=== PATIENT | female | born 1955 | race Caucasian/White ===

== ENCOUNTER 2017-02-19 09:43 | Emergency (ER) | payer BC ==
[2017-02-19] MEDS ORDERED: RX INFO: IV CONTRAST WAS GIVEN 1 EACH MISC MISCELLANE PRN ×2 (10:12→10:15)
[2017-02-19] MEDS ORDERED: SODIUM CHLORIDE 0.9% 500 ML IV STA (10:12)
[2017-02-19] MEDS ORDERED: SODIUM CHLORIDE 0.9% 1,000 ML IV STA (10:12)
[2017-02-19] MEDS ORDERED: ONDANSETRON 4 MG/2 ML VIAL IVP STA (10:12)
[2017-02-19] MEDS ORDERED: HYDROmorphone 1 MG/ML 1 ML SYRINGE IVP STA ×2 (10:12→12:21)
--- NOTE | 2017-02-19 10:54 | ED ---
Abdominal Pain HPI - General Chief Complaint: Abdominal Pain Stated Complaint: Abd Pain, left side pain Time Seen by Provider: 02/19/17 10:05 Source: patient Mode of arrival: ambulatory Limitations: no limitations - History of Present Illness Initial Comments: 61 years old female woke up with excruciating pain on the left upper quadrant area of the abdomen left side of the chest and pain in the left shoulder she denies any fall, no trauma. She denies any heavy lifting pushing or pulling. She fell 2 weeks ago and she broke multiple ribs on the left lower side but that pain was getting better gradually this morning when she woke up she noticed a 6 excruciating pain it hurts to take a deep breaths though she has no trauma to the left shoulder she feels pain in the left shoulder area and also pain over the stomach and spleen are. Review of system is otherwise unremarkable - Related Data Home Medications Medication Instructions Recorded Confirmed Ibuprofen [Motrin] 800 mg PO Q6HR PRN 02/19/17 02/19/17 Allergies Allergy/AdvReac Type Severity Reaction Status Date / Time Penicillins Allergy Rash/Hives Verified 02/19/17 12:12 Review of Systems ROS Statement: Those systems with pertinent positive or pertinent negative responses have been documented in the HPI. ROS Other: All systems not noted in ROS Statement are negative. Past Medical History Additional Past Medical History / Comment(s): hx. colon polyps , lt rib fx from fall History of Any Multi-Drug Resistant Organisms: None Reported Additional Past Surgical History / Comment(s): colonoscopies Past Anesthesia/Blood Transfusion Reactions: No Reported Reaction Past Psychological History: No Psychological Hx Reported Smoking Status: Never smoker Past Alcohol Use History: None Reported Past Drug Use History: None Reported - Past Family History Mother Family Medical History: No Reported History General Exam - General Exam Comments Initial Comments: Severe distress General: The patient is awake and alert, in severe distress she is not even able to lay down for the care and treatment exam when she was sitting up Skin: Skin is warm and dry and no rashes or lesions are noted. Eye: Pupils are equal, round and reactive to light, extra-ocular movements are intact; there is normal conjunctiva bilaterally. Ears, nose, mouth and throat: There are moist mucous membranes and no oral lesions. Neck: The neck is supple, there is no tenderness or JVD. Cardiovascular: There is a regular rate and rhythm. No murmur, rub or gallop is appreciated. The tender over the left lateral chest Respiratory: To auscultation bilateral, no wheezing no rhonchi no distress respiratory miranda noticed Gastrointestinal: She is very tender over the left upper quadrant area Back: There is no tenderness to palpation in the midline. There is no obvious deformity. Musculoskeletal: Normal ROM, no tenderness, There is no pedal edema. There is no calf tenderness or swelling. No cords were appreciated. Neurological: CN II-XII intact, Cranial nerves III through XII are intact. There are no obvious motor or sensory deficits. Coordination appears grossly intact. Speech is normal. Psychiatric: Cooperative, appropriate mood & affect, normal judgment. Limitations: no limitations Course Vital Signs 02/19/17 02/19/17 02/19/17 10:01 12:21 12:47 Temperature 97.1 F L Pulse Rate 100 65 79 Respiratory 20 18 18 Rate Blood Pressure 224/98 119/62 131/76 O2 Sat by Pulse 99 95 95 Oximetry 02/19/17 02/19/17 02/19/17 13:02 13:30 14:13 Temperature Pulse Rate 70 64 69 Respiratory 18 18 18 Rate Blood Pressure 146/76 136/76 114/69 O2 Sat by Pulse 95 94 L 93 L Oximetry 02/19/17 14:31 Temperature 97.5 F L Pulse Rate 71 Respiratory 18 Rate Blood Pressure 127/72 O2 Sat by Pulse 96 Oximetry EKG is normal sinus rhythm ventricular rate 73 TX interval is 142 QRS duration is 80 QT/QTc is 396/[address] depression in aVL apart from that no ST elevation noticed no other major abnormalities noticed - Reevaluation(s) Reevaluation #1: 02/19/17 12:20 Current call from our radiologist about splenic fracture and active bleeding on the patient around 12:15, Dr. Rangel Quiñones was paged and spoke with her at 2020 for findings are discussed with the patient 02/19/17 14:36 Dr. Rangel Quiñones seen the patient several times and finally she made arrangements for transfer to [facility], family agreed with that and at that time we made arrangements she has been hemodynamically stable Medical Decision Making - Lab Data Result diagrams: 02/19/17 13:23 02/19/17 11:00 Lab Results 02/19/17 02/19/17 02/19/17 Range/Units 11:00 11:00 11:00 WBC (3.8-10.6) k/uL RBC (3.80-5.40) m/uL Hgb (11.4-16.0) gm/dL Hct (34.0-46.0) % MCV (80.0-100.0) fL MCH (25.0-35.0) pg MCHC (31.0-37.0) g/dL RDW (11.5-15.5) % Plt Count (150-450) k/uL Neutrophils % % Lymphocytes % % Monocytes % % Eosinophils % % Basophils % % Neutrophils # (1.3-7.7) k/uL Lymphocytes # (1.0-4.8) k/uL Monocytes # (0-1.0) k/uL Eosinophils # (0-0.7) k/uL Basophils # (0-0.2) k/uL Sodium 141 (137-145) mmol/L Potassium 4.2 (3.5-5.1) mmol/L Chloride 109 H (98-107) mmol/L Carbon Dioxide 22 (22-30) mmol/L Anion Gap 10 mmol/L BUN 16 (7-17) mg/dL Creatinine 0.67 (0.52-1.04) mg/dL Est GFR (MDRD) Af Amer >60 (>60 ml/min/1.73 sqM) Est GFR (MDRD) Non-Af >60 (>60 ml/min/1.73 sqM) Glucose 119 H (74-99) mg/dL Plasma Lactic Acid Franklyn 1.2 (0.7-2.0) mmol/L Calcium 9.3 (8.4-10.2) mg/dL Total Bilirubin 0.5 (0.2-1.3) mg/dL AST 16 (14-36) U/L ALT 37 (9-52) U/L Alkaline Phosphatase 93 (38-126) U/L Troponin I <0.012 (0.000-0.034) ng/mL Total Protein 6.6 (6.3-8.2) g/dL Albumin 4.3 (3.5-5.0) g/dL Amylase <30 L (30-110) U/L Lipase 55 (23-300) U/L Urine Color Urine Appearance (Clear) Urine pH (5.0-8.0) Ur Specific [place] (1.001-1.035) Urine Protein (Negative) Urine Glucose (UA) (Negative) Urine Ketones (Negative) Urine Blood (Negative) Urine Nitrite (Negative) Urine Bilirubin (Negative) Urine Urobilinogen (<2.0) mg/dL Ur Leukocyte Esterase (Negative) Urine WBC (0-5) /hpf Ur Squamous Epith Cells (0-4) /hpf Urine Bacteria (None) /hpf Urine Mucus (None) /hpf Blood Type Blood Type Recheck Antibody Screen Crossmatch Spec Expiration Date 02/19/17 02/19/17 02/19/17 Range/Units 11:00 11:00 11:00 WBC 8.7 (3.8-10.6) k/uL RBC 3.81 (3.80-5.40) m/uL Hgb 11.7 (11.4-16.0) gm/dL Hct 35.9 (34.0-46.0) % MCV 94.4 (80.0-100.0) fL MCH 30.6 (25.0-35.0) pg MCHC 32.5 (31.0-37.0) g/dL RDW 13.9 (11.5-15.5) % Plt Count 380 (150-450) k/uL Neutrophils % 80 % Lymphocytes % 15 % Monocytes % 4 % Eosinophils % 1 % Basophils % 0 % Neutrophils # 7.0 (1.3-7.7) k/uL Lymphocytes # 1.3 (1.0-4.8) k/uL Monocytes # 0.3 (0-1.0) k/uL Eosinophils # 0.1 (0-0.7) k/uL Basophils # 0.0 (0-0.2) k/uL Sodium (137-145) mmol/L Potassium (3.5-5.1) mmol/L Chloride (98-107) mmol/L Carbon Dioxide (22-30) mmol/L Anion Gap mmol/L BUN (7-17) mg/dL Creatinine (0.52-1.04) mg/dL Est GFR (MDRD) Af Amer (>60 ml/min/1.73 sqM) Est GFR (MDRD) Non-Af (>60 ml/min/1.73 sqM) Glucose (74-99) mg/dL Plasma Lactic Acid Franklyn (0.7-2.0) mmol/L Calcium (8.4-10.2) mg/dL Total Bilirubin (0.2-1.3) mg/dL AST (14-36) U/L ALT (9-52) U/L Alkaline Phosphatase (38-126) U/L Troponin I (0.000-0.034) ng/mL Total Protein (6.3-8.2) g/dL Albumin (3.5-5.0) g/dL Amylase (30-110) U/L Lipase (23-300) U/L Urine Color Light Yellow Urine Appearance Clear (Clear) Urine pH 5.5 (5.0-8.0) Ur Specific [place] 1.007 (1.001-1.035) Urine Protein Negative (Negative) Urine Glucose (UA) Negative (Negative) Urine Ketones Negative (Negative) Urine Blood Negative (Negative) Urine Nitrite Negative (Negative) Urine Bilirubin Negative (Negative) Urine Urobilinogen <2.0 (<2.0) mg/dL Ur Leukocyte Esterase Large H (Negative) Urine WBC 22 H (0-5) /hpf Ur Squamous Epith Cells 3 (0-4) /hpf Urine Bacteria Rare H (None) /hpf Urine Mucus Rare H (None) /hpf Blood Type O Positive Blood Type Recheck No Antibody Screen NEGATIVE Crossmatch See Detail Spec Expiration Date 02/22/2017 - 229902/19/17 Range/Units 13:23 WBC 9.9 (3.8-10.6) k/uL RBC 3.69 L (3.80-5.40) m/uL Hgb 11.4 (11.4-16.0) gm/dL Hct 35.4 (34.0-46.0) % MCV 96.0 (80.0-100.0) fL MCH 30.9 (25.0-35.0) pg MCHC 32.2 (31.0-37.0) g/dL RDW 14.1 (11.5-15.5) % Plt Count 329 (150-450) k/uL Neutrophils % 85 % Lymphocytes % 10 % Monocytes % 4 % Eosinophils % 1 % Basophils % 0 % Neutrophils # 8.4 H (1.3-7.7) k/uL Lymphocytes # 0.9 L (1.0-4.8) k/uL Monocytes # 0.4 (0-1.0) k/uL Eosinophils # 0.1 (0-0.7) k/uL Basophils # 0.0 (0-0.2) k/uL Sodium (137-145) mmol/L Potassium (3.5-5.1) mmol/L Chloride (98-107) mmol/L Carbon Dioxide (22-30) mmol/L Anion Gap mmol/L BUN (7-17) mg/dL Creatinine (0.52-1.04) mg/dL Est GFR (MDRD) Af Amer (>60 ml/min/1.73 sqM) Est GFR (MDRD) Non-Af (>60 ml/min/1.73 sqM) Glucose (74-99) mg/dL Plasma Lactic Acid Franklyn (0.7-2.0) mmol/L Calcium (8.4-10.2) mg/dL Total Bilirubin (0.2-1.3) mg/dL AST (14-36) U/L ALT (9-52) U/L Alkaline Phosphatase (38-126) U/L Troponin I (0.000-0.034) ng/mL Total Protein (6.3-8.2) g/dL Albumin (3.5-5.0) g/dL Amylase (30-110) U/L Lipase (23-300) U/L Urine Color Urine Appearance (Clear) Urine pH (5.0-8.0) Ur Specific [place] (1.001-1.035) Urine Protein (Negative) Urine Glucose (UA) (Negative) Urine Ketones (Negative) Urine Blood (Negative) Urine Nitrite (Negative) Urine Bilirubin (Negative) Urine Urobilinogen (<2.0) mg/dL Ur Leukocyte Esterase (Negative) Urine WBC (0-5) /hpf Ur Squamous Epith Cells (0-4) /hpf Urine Bacteria (None) /hpf Urine Mucus (None) /hpf Blood Type Blood Type Recheck Antibody Screen Crossmatch Spec Expiration Date Critical Care Time Total Critical Care Time: 60 Critical Care Time: She came in with a blood pressure systolic 224 with excruciating pain to the left upper quadrant area and referred pain to the left shoulder and upper chest pain stat CT of the abdomen and pelvis was ordered considering this possibility of a splenic injury since she had multiple rib fractures on the left side, short of radiologist called me and stated that she had a grade 3 splenic injury her blood pressure dropped from daughter 24 systolic to 119 systolic never wanted her to type and cross 4 units of red cells or ordered chest x-ray also showed some infiltrate antibiotics were ordered in on a hold also Gen.: Dr. Rangel alarcon. She appeared short fluid resuscitation packed red cells have been arranged pain management was done to find out whether she is a candidate for the OR Disposition Clinical Impression: Left upper quadrant pain, Chest wall pain, Pleuritic chest pain, Splenic rupture Disposition: OTHER INSTITUTION NOT DEFINED Condition: Fair Instructions: Abdominal Pain (ED) Referrals: Candi Arias DO [Primary Care Provider] - 1-2 days - Out of Hospital Transfer - Req. Specs Out of Hospital Transfer - Requested Specifics: Other Emergency Center (Patient be transferred to [facility] and family agrees with)
[2017-02-19 11:22] LABS: Basophils % (A) 0 %; CH 31.7; CHCM 33.8; Eosinophils # (A) 0.1 k/uL (0-0.7); Eosinophils % (A) 1 %; HCT 35.9 % (34.0-46.0); HDW 2.53; HGB 11.7 gm/dL (11.4-16.0); Luc # (Auto) 0.08; Luc % (Auto) 1; Lymphocytes # (A) 1.3 k/uL (1.0-4.8); Lymphocytes % (A) 15 %; MCH 30.6 pg (25.0-35.0); MCHC 32.5 g/dL (31.0-37.0); MCV 94.4 fL (80.0-100.0); Mean Platelet Volume 7.7; Monocytes # (A) 0.3 k/uL (0-1.0); Monocytes % (A) 4 %; Neutrophils % (A) 80 %; RBC 3.81 m/uL (3.80-5.40); RDW 13.9 % (11.5-15.5); WBC 8.7 k/uL (3.8-10.6); WBC (Perox) 9.28
[2017-02-19 11:34] LABS: Appearance,Urine Clear (Clear); Bacteria,Urine Rare /hpf; Bilirubin,Urine Negative (Negative); Glucose,Urine (UA) Negative (Negative); Ketones,Urine Negative (Negative); Leukocyte Esterase,Urine Large (Negative); Mucus,Urine Rare /hpf; Nitrite,Urine Negative (Negative); PH, Urine 5.5 (5.0-8.0); Particle Count 7872; Protein,Urine Negative (Negative); Specific Gravity,Urine 1.007 (1.001-1.035); Squamous Epithelial Cell,Urine 3 /hpf (0-4); UA Billing (MACRO vs. MICRO) MICRO; Urobilinogen,Urine <2.0 mg/dL (<2.0); WBC,Urine 22 /hpf (0-5)
--- NOTE | 2017-02-19 11:37 | XR ---
EXAMINATION TYPE: XR KUB DATE OF EXAM: 02/19/2017 COMPARISON: NONE HISTORY: Abdominal pain TECHNIQUE: One view abdominal series FINDINGS: The osseous structures are intact. The bowel gas pattern is nonspecific. A prominent bowel loop in t he abdomen seen with air-fluid levels. A atrophic change of the spine and arthropathy of the hips. Th ere is left lower lobe infiltrate and small effusion.. IMPRESSION: 1. Nonspecific abdomen. Ileus, enteritis or partial obstruction the differential. 2. Left lower lobe infiltrate and small effusion.
[2017-02-19 11:39] LABS: ALT 37 U/L (9-52); AST 16 U/L (14-36); Alkaline Phosphatase 93 U/L (38-126); Amylase <30 U/L (30-110); Anion Gap 10 mmol/L; Blood Urea Nitrogen 16 mg/dL (7-17); Calcium 9.3 mg/dL (8.4-10.2); Carbon Dioxide 22 mmol/L (22-30); Chloride 109 mmol/L (98-107); Glucose 119 mg/dL (74-99); Non-African American GFR(MDRD) >60 (>60 ml/min/1.73 sqM); Potassium 4.2 mmol/L (3.5-5.1); Sodium 141 mmol/L (137-145); Total Bilirubin 0.5 mg/dL (0.2-1.3); Total Protein 6.6 g/dL (6.3-8.2)
[2017-02-19] MEDS ORDERED: cefTRIAXone 2,000 MG in SODIUM CHLORIDE 0.9% 100 ML IVPB STA (11:56)
[2017-02-19] MEDS ORDERED: LABETALOL 5 MG/ML VIAL MDV IVP STA (12:17)
--- NOTE | 2017-02-19 12:18 | CT ---
EXAMINATION TYPE: CT abdomen pelvis w con DATE OF EXAM: 02/19/2017 COMPARISON: NONE HISTORY: Lt side pain CT DLP: 2402.12 mGycm Automated exposure control for dose reduction was used. CONTRAST: CT scan of the abdomen pelvis is performed with IV Contrast, patient injected with 100 mL of Omnipaqu e 350. FINDINGS- LUNG BASES-left lower lobe infiltrate noted. Small left pleural effusion. LIVER/GB-there is a small less than 1 cm hypodensity within the left lobe most typical of a cyst. PANCREAS- No gross abnormality is seen. SPLEEN-there is heterogeneous enhancement of the spleen. Linear area of low attenuation along the bod y of the spleen suggestive of a laceration with surrounding hyperdensity likely representing hematoma in this perisplenic region. There are multiple hypodensities within the spleen suggestive of contusi on. 2 cm area of low-attenuation suggestive of splenic contusion and additional 2.5 cm area of spleni c contusion with a posterior linear laceration medially. Fluid surrounds approximately 70% spleen. Splenic artery and vein enhance normally ADRENALS- No gross abnormality is seen. KIDNEYS/BLADDER- no hydronephrosis nephrolithiasis or renal mass. BOWEL- no bowel dilatation. Normal appendix. LYMPH NODES- No greater than 1cm abdominal or pelvic lymph nodes areappreciated. OSSEOUS STRUCTURES-up fractures which are displaced involving the posterior margin of the left 910 an d 11th ribs. OTHER- there is a large amount of fluid in the pelvis likely related to the splenic inj ury. Results called to emergency room physician. Area of subcutaneous low-attenuation the left lower thoracic sidewall and flank likely related subcutaneous edema or hematoma from trauma. IMPRESSION- 1. There is a large perisplenic fluid collection which appears somewhat hyperdense likely representin g hematoma occupying greater than 50% of the surface area as extends anteriorly. There appear to be a t least 2 intraparenchymal contusions and to peripheral linear laceration suspected. Pelvic most typical of a grade 3 splenic injury with no definite laceration of the segmental or hilar blood vessels. 2. Multiple slightly displaced fractures involving the lower left rib cage. 3. Left lower lobe consolidation and small effusion. 4. Large amount of fluid in the pelvis likely related to the splenic injury and hematoma. Correlate w ith hemoglobin and hematocrit.
[2017-02-19] MEDS ORDERED: SODIUM CHLORIDE 0.9% 1,000 ML IV ONE (12:27)
--- NOTE | 2017-02-19 12:35 | CT ---
EXAMINATION TYPE: CT chest angio for PE DATE OF EXAM: 02/19/2017 COMPARISON: NONE HISTORY: Lt side pain CT DLP: 548.06 mGycm Automated exposure control for dose reduction was used. CONTRAST: CT Chest for pulmonary embolism performed with with IV Contrast, patient injected with 100 mL of Omni paque 350. FINDINGS: LUNGS: Bilateral areas of consolidation are seen with a small left pleural effusion. Large amount of attenuation surrounding the spleen with areas of abnormal intrasplenic attenuation are seen compatibl e with previous reported splenic injury and hematoma. There are fractures involving the posterior margin of the right ninth, 10th and 11th ribs. Also suspe ct a posterior lateral minimally displaced left eighth rib fracture. The left eighth and ninth rib fr actures demonstrate 2 locations of fracture. Aorta of normal caliber with normal enhancement. No aneurysm. Main pulmonary artery enhances normally. There is suboptimal enhancement of the secondary branches wi th no diagnostic evidence of central pulmonary embolism. There is a small amount of fluid in the upper mediastinum likely related to the pericardial recess an d pericardial effusion. Suspect the ninth and 10th ribs demonstrate to a second site of fracture anterolaterally which is min imally displaced. DeGraff hypertrophic and degenerative change of the spine noted. IMPRESSION: 1. No CT evidence of pulmonary embolism 2. Left-sided pleural effusion with bilateral areas of atelectasis or infiltrate. 3. Perisplenic fluid collection which is better seen on CT of the abdomen pelvis with splenic injury. Findings likely represent perisplenic hematoma with splenic injury as previously discussed. 4. Multiple left-sided rib fractures 2 which demonstrate 2 locations of fracture. 5. A small amount of fluid in the upper mediastinum may represent a pericardial reflection and small pericardial effusion. Correlate clinically.
[2017-02-19] MEDS ORDERED: TRANEXAMIC ACID 1,000 MG in SODIUM CHLORIDE 0.9% 100 ML IVPB ONE (12:38)
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
[2017-02-19 13:35] LABS: Basophils % (A) 0 %; CH 31.6; CHCM 33.1; Eosinophils # (A) 0.1 k/uL (0-0.7); Eosinophils % (A) 1 %; HCT 35.4 % (34.0-46.0); HGB 11.4 gm/dL (11.4-16.0); Luc # (Auto) 0.06; Luc % (Auto) 1; Lymphocytes # (A) 0.9 k/uL (1.0-4.8); Lymphocytes % (A) 10 %; MCH 30.9 pg (25.0-35.0); MCHC 32.2 g/dL (31.0-37.0); Monocytes # (A) 0.4 k/uL (0-1.0); Monocytes % (A) 4 %; Neutrophils # (A) 8.4 k/uL (1.3-7.7); Neutrophils % (A) 85 %; RBC 3.69 m/uL (3.80-5.40); RDW 14.1 % (11.5-15.5); WBC 9.9 k/uL (3.8-10.6); WBC (Perox) 10.43
--- NOTE | 2017-02-19 14:26 | P.PN ---
Progress Note - Text Patient has had a repeat hemoglobin performed which is 11.4 stable from 11.7. Additionally patient states she has decreased abdominal discomfort. Repeat review of the CAT scan with radiology demonstrates this again to be a grade 3 splenic injury bordering on grade 4. The patient and her wish to avoid surgical intervention if at all possible. We have discussed admission here with observation, surgical intervention, and as per patient's wishes possible transfer to a tertiary care center. We have discussed the case with the trauma service at [facility] we have informed them of all the patient's injuries and they are willing to accept the patient in transfer. At this time the patient is hemodynamically stable, her hemoglobin is stable, and her abdominal discomfort is decreased. Additionally we are uncertain as to the age of the injury as her initial trauma occurred 2 weeks ago. Repeat review of the CAT scan with radiology may represent recent but not active bleeding. Therefore at the patient's and 's request she is being transferred to a tertiary care facility. They understand the risks and benefits including bleeding enroute and possible need for urgent surgical intervention and they wish to be transferred.
[2017-02-19 14:33] VITALS: TEMP 97.5
[2017-02-19 14:47] VITALS: BP 160/79; PULSE 78
[2017-02-19 15:11] VITALS: RESP 18
== END 2017-02-19 14:53 | disposition other institution (70) ==
LOC: EC 09:43
DX: S36.09XA Other injury of spleen, initial encounter (principal); S22.42XA Multiple fractures of ribs, left side, initial encounter for closed fracture; R07.81 Pleurodynia; R10.12 Left upper quadrant pain; Z88.0 Allergy status to penicillin; W19.XXXA Unspecified fall, initial encounter
CPT/HCPCS: 36415; 93005; 86900; 86901; 80053; 82150; 83605; 83690; 84484; 85025; 86850; 86920; 81001; 74000; 71275; 74177; 99291; 96365; 96367; 96375 ×3; Q9967; J2405; J0696; J1170

== ENCOUNTER → 2017-09-02 | Outpatient (CLI) | payer BC ==
--- NOTE | 2017-09-03 14:30 | MM ---
Reason for exam: screening (asymptomatic). Last mammogram was performed 1 year and 2 months ago. History: Patient is postmenopausal and is nulliparous. Physical Findings: A clinical breast exam by your physician is recommended on an annual basis and results should be correlated with mammographic findings. MG Screening Mammo w CAD Bilateral CC and MLO view(s) were taken. Prior study comparison: July 04, 2016, bilateral MG screening mammo w CAD. June 29, 2015, bilateral MG screening mammo w CAD. There are scattered fibroglandular densities. There is chronic nodularity in the left breast. No significant changes when compared with prior studies. ASSESSMENT: Negative, BI-RAD 1 RECOMMENDATION: Routine screening mammogram of both breasts in 1 year.
== END | disposition home or self-care (01) ==
LOC: RADMAMWWP 06:55
PROVIDERS: ATTEND Family Medicine
DX: Z12.31 Encounter for screening mammogram for malignant neoplasm of breast (principal)
CPT/HCPCS: 77067

== ENCOUNTER 2022-02-09 08:21 | Day surgery (SDC) | payer BC ==
[2022-02-08 09:02] VITALS: BMI 41.8
[~2022-02-09 08:21] MED LIST: LACTATED RINGERS 1,000 ML IV SCH; LIDOCAINE 1% (10MG/ML) FOR IV START INTRADERMA PRN
[2022-02-09 08:50] VITALS: TEMP 98.1
[2022-02-09 09:05] LABS: Glucose,Whole Blood 104 mg/dL (70-110)
[2022-02-09] MEDS ORDERED: PROPOFOL 10 MG/ML 20 ML VIAL IV ONE (09:24)
--- NOTE | 2022-02-09 09:48 | P.PCN ---
Date of Procedure: 02/09/22 Procedure(s) Performed: BRIEF HISTORY: Patient is a 66-year-old pleasant white female scheduled for an elective colonoscopy as a part of evaluation of prior history of colon polyps. Her last colonoscopy was 5 years ago. PROCEDURE PERFORMED: Colonoscopy. PREOPERATIVE DIAGNOSIS: History of colon polyps. IV sedation per Anesthesia. PROCEDURE: After informed consent was obtained, the patient, was brought into the endoscopy unit. IV sedation was administered by Anesthesia under continuous monitoring. Digital rectal examination was normal. Initially the Olympus CF-160 flexible video colonoscope was then inserted in the rectum, gradually advanced into the cecum without any difficulty. Careful examination was performed as the scope was gradually being withdrawn. Ileocecal valve and the appendiceal orifice were visualized and appeared normal. Prep was excellent. Mucosa of the cecum, ascending colon, transverse colon, descending colon, sigmoid colon, and rectum appeared normal. Scattered sigmoid diverticulosis. Retroflexion was performed in the rectum and no lesions were seen. The patient tolerated the procedure well. IMPRESSION: Normal-appearing colon from rectum to cecum no evidence of colorectal neoplasia . Scattered sigmoid diverticulosis. RECOMMENDATIONS: Findings of this examination were discussed with the patient as well as a family. She was advised to have a repeat screening colonoscopy every 10 years..
[2022-02-09 10:38] VITALS: BP 126/67; PULSE 71; RESP 16
== END 2022-02-09 10:37 | disposition home or self-care (01) ==
LOC: ORWHC2ENDO 08:21
PROVIDERS: ATTEND Internal Medicine Gastroenterology
DX: Z12.11 Encounter for screening for malignant neoplasm of colon (principal); K57.30 Diverticulosis of large intestine without perforation or abscess without bleeding; Z86.010 Personal history of colon polyps; I10 Essential (primary) hypertension; E11.69 Type 2 diabetes mellitus with other specified complication; E78.5 Hyperlipidemia, unspecified; Z88.0 Allergy status to penicillin; Z79.84 Long term (current) use of oral hypoglycemic drugs; Z79.899 Other long term (current) drug therapy
CPT/HCPCS: 45378; J2704

== ENCOUNTER → 2023-11-28 | Outpatient (CLI) | payer BC ==
--- NOTE | 2023-11-28 18:55 | MM ---
Reason for Exam: Screening (asymptomatic). Last mammogram was performed 6 year(s) and 3 month(s) ago. Patient History: Menarche at age 14. Patient has no children. Postmenopausal. Risk Values: Kathia 5 year model risk: 1.9%. NCI Lifetime model risk: 6.7%. Prior Study Comparison: 06/29/2015 Bilateral Screening Mammogram, [facility]. 07/04/2016 Bilateral Screening Mammogram, [facility]. 09/02/2017 Bilateral Screening Mammogram, [facility]. Tissue Density: The breasts are almost entirely fatty. Findings: Analyzed By CAD. A left ureteral lymph node on the left is unchanged. However, nodularity anterior outer aspect of the left breast appears new. Further evaluation is recommended. Otherwise, no significant change. Overall Assessment: Incomplete: need additional imaging evaluation, BI-RAD 0 Management: Special View Mammogram of the left breast. Diagnostic Breast Ultrasound of the left breast. [facility] will attempt to contact patient to return for supplemental views and ultrasound if indicated. Electronically signed and approved by: Zena Almonte M.D. Radiologist
== END | disposition home or self-care (01) ==
LOC: RADMAMWWP 06:49
PROVIDERS: ATTEND Family Medicine
DX: Z12.31 Encounter for screening mammogram for malignant neoplasm of breast (principal); Z78.0 Asymptomatic menopausal state
CPT/HCPCS: 77067

== ENCOUNTER → 2023-12-05 | Outpatient (CLI) | payer BC ==
--- NOTE | 2023-12-05 08:15 | MM ---
Reason for Exam: Additional evaluation requested from abnormal screening. Last screening mammogram was performed less than 1 month ago. Patient History: Menarche at age 14. Patient has no children. Postmenopausal. Risk Values: Kathia 5 year model risk: 1.9%. NCI Lifetime model risk: 6.7%. Prior Study Comparison: 07/04/2016 Bilateral Screening Mammogram, [facility]. 09/02/2017 Bilateral Screening Mammogram, [facility]. 11/28/2023 Bilateral MG screening mammo w CAD, [facility]. Tissue Density: Left: There are scattered areas of fibroglandular density. Findings: Analyzed By CAD. There is a persistent 0.5 cm circumscribed rounded density within the anterior left breast 3:00 position 4 cm from the nipple on compression.. There appears to be stable lymph node prior examinations upper outer posterior left breast. Overall Assessment: Incomplete: need additional imaging evaluation, BI-RAD 0 Management: Diagnostic Breast Ultrasound of the left breast. A negative mammogram report should not preclude additional follow up of suspicious palpable abnormalities. Patient should continue monthly self breast exam. A clinical breast exam by your physician is recommended on an annual basis and results should be correlated with mammographic findings. Note on Kathia scores and lifetime risk: 1. A Kathia score greater than 3% is considered moderate risk. If this is the case, consider specialist referral to assess eligibility for a risk reducing agent. 2. If overall lifetime risk for the development of breast cancer is 20% or higher, the patient may qualify for future screening with alternating mammogram and breast MRI. Electronically signed and approved by: Vincent Ji D.O. Radiologis
--- NOTE | 2023-12-06 07:42 | USB ---
Reason for Exam: Additional evaluation requested from abnormal screening. Patient History: Menarche at age 14. Patient has no children. Postmenopausal. Risk Values: Kathia 5 year model risk: 1.9%. NCI Lifetime model risk: 6.7%. Technique: Method: Targeted. Prior Study Comparison: 07/04/2016 Bilateral Screening Mammogram, [facility]. 09/02/2017 Bilateral Screening Mammogram, [facility]. 11/28/2023 Bilateral MG screening mammo w CAD, [facility]. Findings: The upper outer quadrant of the left breast, the axilla of the left breast and the retroareolar of the left breast were scanned. At the 3:00 position 5 cm from nipple is a simple cyst measuring 0.5 x 0.4 x 0.3 cm. This correlates with the mammogram. Overall Assessment: Benign, BI-RAD 2 Management: Screening Mammogram of both breasts in 1 year. A clinical breast exam by your physician is recommended on an annual basis and results should be correlated with mammographic findings. This exam should not preclude additional follow-up of suspicious palpable abnormalities. Results were given to the patient verbally at the time of exam. Electronically signed and approved by: Vincent Ji D.O. Radiologis
== END | disposition home or self-care (01) ==
LOC: RADMAMWWP 07:00
PROVIDERS: ATTEND Family Medicine
DX: R92.322 Mammographic fibroglandular density, left breast (principal); Z78.0 Asymptomatic menopausal state
CPT/HCPCS: 77061; 77065